=== PATIENT | male | born 1990 | race Caucasian/White ===

== ENCOUNTER 2024-06-28 19:47 | Emergency (ER) | payer SELFPAY ==
[2024-06-28 19:53] VITALS: BP 140/96
[2024-06-28] MEDS: NAPROSYN 500 MG PO (22:26)
--- NOTE | 2024-06-29 01:58 | ED.GENMED ---
History of Present Illness
General
Chief Complaint: Musculo-Skeletal Complaint
Source: patient and ambulance crew
Exam Limitations: none
Time Seen by Provider: 06/28/24 20:33
Nursing documentation reviewed up to this point in time: agreed with
History of Present Illness
History of Present Illness:
34-year-old male with no reported medical issues presents to the emergency room via EMS�apparently was walking around at a [employer] and was picked up and asked for an ambulance because his feet were sore. He says that he has been making his way
from his home in [place] down towards [place] 'to restart my life.' He says that he has been doing a lot of walking and that his feet are very sore. He says that he has been to the emergency room 5 times for this and that they usually give
him Vicodin and he is requesting some here. He denies any trauma or injury. He does have reasonable footwear at the bedside.
Review of Systems
Review of Systems
All Other Systems: ROS reviewed and negative except as documented in HPI and ROS
Musculoskeletal: Reports other (Sore feet)
Phy Exam
Physical Exam
Physical Exam:
General: Well appearing and non-toxic
HEENT: protecting airway
Neck: appears supple
CV: No evidence of cyanosis
Resp: No accessory muscle use
Abd: Non-distended
Extremities: No deformities, feet are warm well-perfused pink; no erythema or induration, no wounds; bottom of the feet callused
Neuro: Alert
Psych: Normal affect
Skin: Intact
Scores
Heart Failure Risk
Heart Failure Risk Score: Not Applicable
Heart Score for Chest Pain Patients
STEMI patient?: Not applicable
Withdrawal Assessment of Alcohol
Withdrawal Assessment Completed?: Not applicable
Course
Orders/Labs/Results
Orders:
Orders
06/28/24 22:21
Naproxen [Naprosyn] 500 mg PO NOW STA
Vital Signs
Initial and Last Documented VS:
Initial Vital Signs
Temp Pulse Resp BP Pulse Ox
36.8 C 90 24 140/96 100
06/28/24 19:53 06/28/24 19:53 06/28/24 19:53 06/28/24 19:53 06/28/24 19:53
Last Documented Vital Signs
Temp Pulse Resp BP Pulse Ox
36.8 C 90 24 140/96 100
06/28/24 19:53 06/28/24 19:53 06/28/24 19:53 06/28/24 19:53 06/28/24 19:53
MDM/Problems Addressed
Differential Diagnosis Includes:
Sore feet from calluses
MDM/Problems Addressed:
34-year-old male presents with sore feet after doing a lot of walking. He says that when his feet get sore he goes to the ER and they given Vicodin. I explained to him that opioids are not indicated for sore calluses and that we would not be
prescribing opioids. He is okay with treating with naproxen. He does not have any signs of infection or vascular compromise. Stable for discharge.
*Pulse Oximetry
Patient hypoxic: no
*Critical Care Note
Total Time (30-74mins, 75-104mins- exclusive of procedures): Not Applicable
Data Reviewed
Source: patient
ED Attending Note
-
Portions of this chart may have been created with voice recognition software.� Occasional wrong word or��sound alike� substitutions may have occurred due to the inherent limitations of voice recognition software.
Discharge Plan
Departure
Patient Disposition: Home (Routine Discharge)
Date of Disposition: 06/28/24
Time of Disposition: 22:20
Patient with high blood pressure during this ER visit?: No
Discharge Problem:
Foot pain
Instructions: Corns and calluses
Prescriptions:
New
naproxen 500 mg tablet
500 mg PO BID PRN (Reason: Pain) Qty: 20 0RF
Referrals:
NONE,* [Family Provider] -
Activity Restrictions/Additional Instructions:
Thank you for visiting the Emergency Department at [facility].
1. Please schedule a follow up appointment as directed. Call first thing tomorrow morning to make an appointment.
2. If indicated, please take your medications as instructed and indicated on discharge paperwork.
3. If any of your symptoms do not improve, or persist, or become more severe within 6-12 hours, please return to the emergency department for further care.
4. Please return to the emergency department if you develop a headache, neck pain/stiffness, fever greater than 100.4F, chest pain, shortness of breath, persistent nausea, vomiting, slurred speech, difficulty walking, numbness/tingling, weakness,
signs of infection or any other symptoms that are worrisome to you.
Please call [phone] if you have any questions.
Interventions
Interventions:
*Risk Screen - Suicide Last Done: 06/28/24 19:53
*General Assessment Last Done: 06/28/24 21:21
*Neglect/Abuse Screening Last Done: 06/28/24 19:53
ED- Fall Risk Assessment Last Done: 06/28/24 21:23
*ED COVID-19 Vaccine History Last Done: 06/28/24 21:21
*Nursing Disposition Last Done: 06/28/24 22:40
ED-Musculoskeletal Assessment Last Done: 06/28/24 21:21
Discharge Date and Time
Discharge Date/Time: 06/28/24 22:41
Print Language: CITIZEN OF [place]
== END 2024-06-28 22:41 | disposition home or self-care (01) ==
LOC: EMR 19:47
PROVIDERS: EMERGENCY PHYSICIAN Emergency Medicine
DX: M79.672 Pain in left foot (principal); M79.671 Pain in right foot
CPT/HCPCS: 99283